=== PATIENT | female | born 1985 | race Two or more races ===

== ENCOUNTER 2020-05-01 20:01 | Inpatient (IN) | payer MEDICAID ==
[~2020-05-01] VITALS: Ht 167.6 cm; Wt 85.9 kg
[2020-05-01 22:04] LABS: Basophils # (auto) 0.1 10 ^3/uL (0-0.2); Basophils % (auto) 0.5 % (0.0-2.0); Eosinophils # (auto) 0.2 10 ^3/uL (0-0.8); Eosinophils % (auto) 1.2 % (0.0-7.0); Hematocrit 44.6 % (36.0-46.0); Hemoglobin 14.7 g/dL (12.2-16.2); Lymphocytes # (auto) 1.5 10 ^3/uL (0.4-5.4); Lymphocytes % (auto) 9.2 % (10.0-50.0); Mean Corpuscular Hemoglobin 27.5 pg (28.0-32.0); Mean Corpuscular Volume 83.3 fL (80.0-100.0); Monocytes % (auto) 6.2 % (0.0-12.0); Neutrophils # (auto) 13.1 10 ^3/uL (1.6-8.6); Neutrophils % (auto) 82.9 % (37.0-80.0); Nucleated Red Blood Cells % 0.1 %; Platelet Count (auto) 349 10^3/uL (140-450); Red Blood Cells 5.35 10^6/uL (4.0-5.20); Red Cell Distribution Width 15.2 % (11.8-14.3); White Blood Cell 15.8 10^3/uL (4.4-10.8)
[2020-05-01 22:25] LABS: Albumin 3.8 g/dL (3.4-5.0); Calcium 8.7 mg/dL (8.5-10.1)
[2020-05-01 22:32] LABS: BUN/Creatinine Ratio 15.1; Bilirubin, Total 0.3 mg/dL (0.2-1.0); Total Protein 7.7 g/dL (6.4-8.2)
[2020-05-01 23:11] LABS: Urine Bacteria FEW /hpf (None Seen); Urine Blood 1+ /uL (Negative); Urine Mucus FEW (None Seen); Urine Specific Gravity 1.016 (1.001-1.035); Urine WBC 2 /hpf (0 - 5)
[2020-05-01] MEDS ORDERED: LORazepam 2MG/ML-1ML VIAL IV ONE (23:15)
[2020-05-02] MEDS ORDERED: ONDANSETRON HCL 4 MG/2 ML VIAL IV ONE
[2020-05-02] MEDS ORDERED: CLOPIDOGREL BISULFATE 75 MG TAB PO ONE (02:00)
[2020-05-02] MEDS ORDERED: ENOXAPARIN SOD 100 MG/1 ML SYRINGE SC ONE (02:30)
[2020-05-02] MEDS ORDERED: SODIUM CHLORIDE 0.9% 1,000 ML IV SCH (02:30)
[2020-05-02] MEDS ORDERED: MORPHINE SULF INJ 2 MG/ML SYRINGE 1ML IV PRN (02:30)
[2020-05-02] MEDS ORDERED: ONDANSETRON HCL 4 MG/2 ML VIAL IV PRN (02:30)
[2020-05-02] MEDS ORDERED: NITROGLYCERIN 0.4 MG SL TAB SL PRN (02:30)
[2020-05-02 03:05] LABS: INR 2.24 (0.9-1.15); Partial Thromboplastin Time 38.1 sec (23.0-31.2)
--- NOTE | 2020-05-02 04:34 | NUR ---
Telemetry admit from ER SHIRAZFRANCHESCA admitted to Telemetry unit after NO SBAR received. Patient oriented to MEGHNA MORRISSEY, RN primary RN, unit, room, bed, and unit policies regarding patient care and visiting hours. Patient now on continuous telemetry monitoring, tele box # 48 and telemetry reading on arrival to unit is sinus rhythm at 86. Patient weighed by bed scale and encouraged to call if they need something. All questions and concerns addressed, patient verbalized understanding. Note: Personal medications removed from patient's possession and logged to be stored in pharmacy until discharge.
[2020-05-02 05:10] VITALS: BP 97/77
[2020-05-02] MEDS ORDERED: POTA10TA51 PO (06:05)
[2020-05-02] MEDS ORDERED: WARF2.5T39 PO (06:05)
[2020-05-02] MEDS ORDERED: FURO1TAB33 PO (06:05)
[2020-05-02] MEDS ORDERED: ESCI10TA53 PO (06:05)
[2020-05-02] MEDS ORDERED: LISI2.5T47 PO (06:05)
[2020-05-02] MEDS ORDERED: DIGO0.25 PO (06:05)
[2020-05-02 08:00] VITALS: BP 111/64
--- NOTE | 2020-05-02 08:00 | NUR ---
Critical Trop Informed Dr Brown of patients troponin of 2.620. No orders at this time
[2020-05-02 08:35] VITALS: BP 111/64
--- NOTE | 2020-05-02 08:35 | NUR ---
Pharmacy Coumadin Confirmed patients home dose of Coumadin of 7.5 mg Daily, last taken 10-6. Provided info to Pharmacist
[2020-05-02] MEDS ORDERED: OPTISON 3ml Vial for INJ IV ONE (10:32)
[2020-05-02] MEDS: ASPirin 81 mg TAB PO SCH (10:58)
[2020-05-02] MEDS: DIGOXIN 0.125 MG TAB PO SCH (10:59)
[2020-05-02] MEDS: FUROSEMIDE 20 MG TAB PO SCH (11:02)
[2020-05-02] MEDS: CARVEDILOL 3.125 MG TAB PO SCH ×2 (11:02→22:37)
--- NOTE | 2020-05-02 11:20 | NUR ---
Nutrition Consult Will monitor pt tolerance of diet and signs of GI issues when diet is advanced Est energy needs 4303-1815 kcal (18-20kcal/kg BW 85.9kg) Est protein needs 59-77g (1-1.3g/kg IBW 59kg) Will reassess prn. Addendum: 05/02/20 at [address] Amended: Links added.
--- NOTE | 2020-05-02 11:30 | NUR ---
Dr Brown on unit.
--- NOTE | 2020-05-02 11:35 | NUR ---
Orders received from Dr Ma and carried out
--- NOTE | 2020-05-02 12:20 | NUR ---
Per Dr Brown, I confirmed with Dr Alma Rosa Patel that Kevin is to continue patient care. Orders received from Dr Brown and carried out.
--- NOTE | 2020-05-02 12:30 | NUR ---
AICD Interrogation Dr Brown requested to have patient AICD interrogated
[2020-05-02 12:44] VITALS: BP 116/71
[2020-05-02] MEDS: HYDROcodone-ACET 5/325MG TAB PO PRN ×3 (13:40→22:36)
--- NOTE | 2020-05-02 13:40 | NUR ---
[employer] rep bedside with patient interrogating AICD
[2020-05-02 14:13] LABS: Amphetamine Screen, Urine NEGATIVE (NEGATIVE); Benzodiazephine Screen, Urine NEGATIVE (NEGATIVE); Cannabinoid Screen, Urine POSITIVE (NEGATIVE); Cocaine Screen, Urine NEGATIVE (NEGATIVE); Phencyclidine Screen, Urine NEGATIVE (NEGATIVE)
[2020-05-02 14:21] LABS: Barbiturate Scree,Urine NEGATIVE (NEGATIVE); Opiate Scree,Urine NEGATIVE (NEGATIVE)
[2020-05-02 14:49] LABS: Albumin 3.6 g/dL (3.4-5.0); BUN/Creatinine Ratio 14.4; Calcium 8.6 mg/dL (8.5-10.1); Magnesium 2.1 mg/dL (1.6-2.6); Potassium 4.1 mmol/L (3.5-5.1)
[2020-05-02 14:52] LABS: Bilirubin, Total 0.7 mg/dL (0.2-1.0); Total Protein 7.5 g/dL (6.4-8.2)
[2020-05-02 16:55] VITALS: BP 97/68
[2020-05-02] MEDS ORDERED: WARFARIN SODIUM 2.5 MG TAB PO ONE (17:00)
--- NOTE | 2020-05-02 19:30 | NUR ---
Opening Shift Note Assumed care of patient, awake and alert. No S/S of distress/SOB or pain. Instructed on POC and to call for assist PRN, will continue to monitor for changes Q1hr and PRN.
[2020-05-02 22:00] VITALS: BP 107/66
[2020-05-02] MEDS ORDERED: ATORVASTATIN 20 MG TAB PO SCH (22:00)
--- NOTE | 2020-05-02 23:50 | NUR ---
spoke with the hospitalist regarding pt's latest Trop. no new order received
[2020-05-03 05:00] VITALS: BP 105/75
[2020-05-03 05:53] LABS: Basophils # (auto) 0.1 10 ^3/uL (0-0.2); Basophils % (auto) 0.6 % (0.0-2.0); Eosinophils # (auto) 0.3 10 ^3/uL (0-0.8); Eosinophils % (auto) 2.9 % (0.0-7.0); Hematocrit 41.6 % (36.0-46.0); Hemoglobin 13.9 g/dL (12.2-16.2); Lymphocytes # (auto) 2.9 10 ^3/uL (0.4-5.4); Mean Corpuscular Hemoglobin 27.8 pg (28.0-32.0); Mean Corpuscular Hgb Conc. 33.4 g/dL (32.0-36.0); Mean Corpuscular Volume 83.3 fL (80.0-100.0); Monocytes # (auto) 0.9 10 ^3/uL (0-1.3); Monocytes % (auto) 8.9 % (0.0-12.0); Neutrophils # (auto) 6.2 10 ^3/uL (1.6-8.6); Neutrophils % (auto) 59.6 % (37.0-80.0); Nucleated Red Blood Cells % 0.1 %; Platelet Count (auto) 308 10^3/uL (140-450); Red Blood Cells 4.99 10^6/uL (4.0-5.20); White Blood Cell 10.3 10^3/uL (4.4-10.8)
[2020-05-03 06:08] LABS: INR 1.68 (0.9-1.15)
[2020-05-03 06:10] LABS: Potassium 3.8 mmol/L (3.5-5.1)
[2020-05-03 06:19] LABS: Albumin 3.7 g/dL (3.4-5.0); BUN/Creatinine Ratio 18.1; Bilirubin, Total 0.6 mg/dL (0.2-1.0); Calcium 8.7 mg/dL (8.5-10.1); Total Protein 7.4 g/dL (6.4-8.2)
--- NOTE | 2020-05-03 07:17 | NUR ---
closing notes endorsed care to day RN, no sign of distress/pain at this time
[2020-05-03 09:00] VITALS: BP 128/74
[2020-05-03] MEDS: FUROSEMIDE 20 MG TAB PO SCH (09:35)
[2020-05-03] MEDS: DIGOXIN 0.125 MG TAB PO SCH (09:35)
[2020-05-03] MEDS: CARVEDILOL 3.125 MG TAB PO SCH (09:36)
[2020-05-03] MEDS: ASPirin 81 mg TAB PO SCH (09:36)
[2020-05-03] MEDS ORDERED: CAR3125T PO (10:03)
[2020-05-03 10:26] VITALS: BP 107/70
--- NOTE | 2020-05-03 11:31 | NUR ---
Discharge instructions given as ordered. Encourage to follow up with PMD (Follow up with Dr. Alma Rosa Patel today at 1200, Follow up with PCP in 1-2 weeks) as instructed. All questions and concerns addressed. Patient verbalized understanding. Medication reconciliation form completed and copy given to patient. Home medications held in Pharmacy returned to patient. IV removed with catheter intact, pressure dressing applied. Telemetry unit returned to ICU. Patient taken to vehicle via wheelchair with all personal belongings, accompanied by staff and family member. No distress noted at time of departure.
[2020-05-03] MEDS ORDERED: WARFARIN SODIUM 2.5 MG TAB PO ONE (17:00)
== END 2020-05-03 11:30 | disposition home or self-care (01) | DRG 206 ==
LOC: EDBD 20:01 → ER 20:03 → TELE 20:04 → TELE-CENTR 05-02 04:34
PROVIDERS: ADMIT Nurse Practitioner; ATTEND Internal Medicine
PROC: 4B02XSZ Measurement of Cardiac Pacemaker, External Approach (ICD-10-PCS; principal; 2020-05-02)
DX: T82.897A Other specified complication of cardiac prosthetic devices, implants and grafts, initial encounter (principal); E66.01 Morbid (severe) obesity due to excess calories; I50.42 Chronic combined systolic (congestive) and diastolic (congestive) heart failure; Z68.30 Body mass index [BMI] 30.0-30.9, adult; Z79.01 Long term (current) use of anticoagulants; D68.32 Hemorrhagic disorder due to extrinsic circulating anticoagulants; T45.515A Adverse effect of anticoagulants, initial encounter; I42.0 Dilated cardiomyopathy; Z95.0 Presence of cardiac pacemaker; Z82.49 Family history of ischemic heart disease and other diseases of the circulatory system; Z82.0 Family history of epilepsy and other diseases of the nervous system; R77.8 Other specified abnormalities of plasma proteins
CPT/HCPCS: 36415; 71045; 80053; 80162; 80307; 81001; 83735; 84484; 85025; 85610; 85730; 93005; 93306; G0378; J2405; Q9956

== ENCOUNTER 2021-01-02 13:49 | Emergency (ER) | payer MEDICAID ==
[~2021-01-02] VITALS: Ht 167.6 cm; Wt 95.3 kg
[~2021-01-02 13:49] MED LIST: CAR3125T PO; DIGO0.25 PO; ESCI-28 PO; FURO1TAB33 PO; LISI2.5T47 PO; POTA10TA51 PO; WARF2.5T39 PO
[2021-01-02 14:35] LABS: Basophils # (auto) 0.1 10 ^3/uL (0-0.2); Basophils % (auto) 0.5 % (0.0-2.0); Eosinophils # (auto) 0.2 10 ^3/uL (0-0.8); Eosinophils % (auto) 1.2 % (0.0-7.0); Hematocrit 45.4 % (36.0-46.0); Hemoglobin 15.5 g/dL (12.2-16.2); Lymphocytes # (auto) 2.3 10 ^3/uL (0.4-5.4); Mean Corpuscular Hgb Conc. 34.1 g/dL (32.0-36.0); Mean Corpuscular Volume 82.1 fL (80.0-100.0); Monocytes # (auto) 0.7 10 ^3/uL (0-1.3); Monocytes % (auto) 5.1 % (0.0-12.0); Neutrophils % (auto) 77.2 % (37.0-80.0); Nucleated Red Blood Cells % 0.1 %; Platelet Count (auto) 441 10^3/uL (140-450); Red Blood Cells 5.53 10^6/uL (4.0-5.20); Red Cell Distribution Width 14.9 % (11.8-14.3); White Blood Cell 14.3 10^3/uL (4.4-10.8)
[2021-01-02 15:01] LABS: Alanine Aminotransferase 46 U/L (13-56); Albumin 4.1 g/dL (3.4-5.0); Anion Gap 9 (5-15); Aspartate Aminotransferase 22 U/L (15-37); BUN/Creatinine Ratio 11.1; Blood Urea Nitrogen 11 mg/dL (7-18); Calcium 9.3 mg/dL (8.5-10.1); Carbon Dioxide 24 mmol/L (21-32); Chloride 106 mmol/L (98-107); GFR African American 83 mL/min; GFR Non-African American 69 mL/min; Glucose 112 mg/dL (74-106); Magnesium 2.4 mg/dL (1.6-2.6); Potassium 3.8 mmol/L (3.5-5.1); Sodium 139 mmol/L (136-145)
[2021-01-02 15:06] LABS: Alkaline Phosphatase 125 U/L (45-117); Bilirubin, Total 0.5 mg/dL (0.2-1.0); Total Protein 8.4 g/dL (6.4-8.2)
[2021-01-02 15:58] LABS: Urine Bacteria FEW /hpf (None Seen); Urine Blood 1+ /uL (Negative); Urine Mucus FEW (None Seen); Urine Specific Gravity 1.034 (1.001-1.035); Urine WBC 4 /hpf (0 - 5)
[2021-01-02 17:10] VITALS: BP 132/45
== END 2021-01-02 17:10 | disposition home or self-care (01) ==
LOC: ER 13:49
DX: R00.2 Palpitations (principal); R06.02 Shortness of breath; D72.829 Elevated white blood cell count, unspecified; Z32.02 Encounter for pregnancy test, result negative
CPT/HCPCS: 36415; 71046; 80053; 81001; 81025; 83735; 83880; 84484; 85025; 93005

== ENCOUNTER 2021-08-26 15:33 | Emergency (ER) | payer MEDICAID ==
[~2021-08-26] VITALS: Ht 167.6 cm; Wt 90.7 kg
[2021-08-26 17:01] VITALS: BP 115/77
[2021-08-26 17:10] LABS: Basophils # (auto) 0.1 10 ^3/uL (0-0.2); Basophils % (auto) 0.8 % (0.0-2.0); Eosinophils # (auto) 0.3 10 ^3/uL (0-0.8); Eosinophils % (auto) 2.6 % (0.0-7.0); Hematocrit 41.8 % (36.0-46.0); Lymphocytes # (auto) 1.5 10 ^3/uL (0.4-5.4); Lymphocytes % (auto) 12.6 % (10.0-50.0); Mean Corpuscular Hemoglobin 27.6 pg (28.0-32.0); Mean Corpuscular Hgb Conc. 33.4 g/dL (32.0-36.0); Mean Corpuscular Volume 82.6 fL (80.0-100.0); Monocytes # (auto) 0.8 10 ^3/uL (0-1.3); Monocytes % (auto) 6.6 % (0.0-12.0); Neutrophils % (auto) 77.4 % (37.0-80.0); Red Blood Cells 5.06 10^6/uL (4.0-5.20); Red Cell Distribution Width 14.7 % (11.8-14.3); White Blood Cell 11.6 10^3/uL (4.4-10.8)
[2021-08-26 17:28] LABS: Albumin 3.5 g/dL (3.4-5.0); Calcium 9.1 mg/dL (8.5-10.1); Magnesium 3.3 mg/dL (1.6-2.6); Potassium 3.7 mmol/L (3.5-5.1)
[2021-08-26 17:34] LABS: BUN/Creatinine Ratio 15.4; Bilirubin, Total 0.3 mg/dL (0.2-1.0)
== END 2021-08-26 20:39 | disposition home or self-care (01) ==
LOC: ER 15:33
DX: R25.1 Tremor, unspecified (principal); R00.2 Palpitations; I11.0 Hypertensive heart disease with heart failure; I50.9 Heart failure, unspecified; Z86.73 Personal history of transient ischemic attack (TIA), and cerebral infarction without residual deficits; Z95.0 Presence of cardiac pacemaker; Z79.01 Long term (current) use of anticoagulants; Z79.899 Other long term (current) drug therapy
CPT/HCPCS: 36415; 70450; 71045; 80053; 81025; 83735; 84484; 85025; 85379; 93005

== ENCOUNTER 2022-01-01 14:09 | Inpatient (IN) | payer MEDICAID ==
[~2022-01-01] VITALS: Ht 167.6 cm; Wt 95.8 kg
[2022-01-01] MEDS ORDERED: ASPirin 81 mg TAB PO ONE (14:45)
[2022-01-01 15:39] LABS: Basophils # (auto) 0 10 ^3/uL (0-0.2); Basophils % (auto) 0.7 % (0.0-2.0); Eosinophils # (auto) 0.1 10 ^3/uL (0-0.8); Eosinophils % (auto) 1.4 % (0.0-7.0); Hematocrit 43.5 % (36.0-46.0); Hemoglobin 14.7 g/dL (12.2-16.2); Lymphocytes % (auto) 27.4 % (10.0-50.0); Mean Corpuscular Hemoglobin 27.9 pg (28.0-32.0); Mean Corpuscular Hgb Conc. 33.9 g/dL (32.0-36.0); Mean Corpuscular Volume 82.2 fL (80.0-100.0); Monocytes # (auto) 0.5 10 ^3/uL (0-1.3); Monocytes % (auto) 7.2 % (0.0-12.0); Neutrophils # (auto) 4.6 10 ^3/uL (1.6-8.6); Neutrophils % (auto) 63.3 % (37.0-80.0); Nucleated Red Blood Cells % 0.2 %; Red Blood Cells 5.29 10^6/uL (4.0-5.20); Red Cell Distribution Width 15.1 % (11.8-14.3); White Blood Cell 7.3 10^3/uL (4.4-10.8)
[2022-01-01 15:59] LABS: Potassium 3.7 mmol/L (3.5-5.1)
[2022-01-01 16:04] LABS: Albumin 3.8 g/dL (3.4-5.0); BUN/Creatinine Ratio 11.5; Bilirubin, Total 0.4 mg/dL (0.2-1.0); Calcium 8.9 mg/dL (8.5-10.1); Total Protein 7.9 g/dL (6.4-8.2)
[2022-01-01] MEDS ORDERED: ONDANSETRON HCL 4 MG/2 ML VIAL IV PRN (21:30)
[2022-01-01] MEDS ORDERED: DOCUSATE SOD 100 MG CAP PO PRN (21:30)
[2022-01-01] MEDS ORDERED: ACETAMINOPHEN 325 MG TAB PO PRN (21:30)
[2022-01-01] MEDS ORDERED: NITROGLYCERIN 0.4 MG SL TAB SL PRN (23:45)
[2022-01-01] MEDS ORDERED: MORPHINE SULFATE INJ 2 MG/ml SYRG IV PRN (23:45)
[2022-01-02] VITALS (7 sets, daily range): BP systolic 104–115; BP diastolic 70–81
[2022-01-02] MEDS: HYDROcodone-ACET 5/325MG TAB PO PRN ×3 (02:32→20:12)
[2022-01-02 04:48] LABS: Urine Bacteria NONE SEEN /hpf (None Seen); Urine Blood TRACE /uL (Negative); Urine Mucus FEW (None Seen); Urine Specific Gravity 1.034 (1.001-1.035); Urine WBC 1 /hpf (0 - 5)
[2022-01-02 06:27] LABS: Basophils # (auto) 0 10 ^3/uL (0-0.2); Basophils % (auto) 0.6 % (0.0-2.0); Eosinophils # (auto) 0.2 10 ^3/uL (0-0.8); Eosinophils % (auto) 2.9 % (0.0-7.0); Hematocrit 37.6 % (36.0-46.0); Hemoglobin 12.8 g/dL (12.2-16.2); Lymphocytes # (auto) 2.6 10 ^3/uL (0.4-5.4); Lymphocytes % (auto) 34.5 % (10.0-50.0); Mean Corpuscular Hemoglobin 28.2 pg (28.0-32.0); Mean Corpuscular Hgb Conc. 34.1 g/dL (32.0-36.0); Mean Corpuscular Volume 82.7 fL (80.0-100.0); Monocytes # (auto) 0.7 10 ^3/uL (0-1.3); Monocytes % (auto) 9.1 % (0.0-12.0); Neutrophils # (auto) 4.1 10 ^3/uL (1.6-8.6); Neutrophils % (auto) 52.9 % (37.0-80.0); Nucleated Red Blood Cells % 0.1 %; Red Blood Cells 4.55 10^6/uL (4.0-5.20); Red Cell Distribution Width 15.1 % (11.8-14.3); White Blood Cell 7.7 10^3/uL (4.4-10.8)
[2022-01-02 06:42] LABS: Albumin 3.3 g/dL (3.4-5.0); BUN/Creatinine Ratio 17.5; Calcium 8.4 mg/dL (8.5-10.1); Potassium 3.4 mmol/L (3.5-5.1)
[2022-01-02 06:45] LABS: Bilirubin, Total 0.2 mg/dL (0.2-1.0); Total Protein 6.7 g/dL (6.4-8.2)
[2022-01-02] MEDS: ENOXAPARIN SOD 40 MG/0.4 ML SYRINGE SC SCH (10:00)
[2022-01-02] MEDS: FAMOTIDINE (10MG/ML) 2ML VL IV SCH (10:00)
[2022-01-02] MEDS: ASPirin 81 mg TAB PO SCH (10:20)
[2022-01-02] MEDS ORDERED: POTASSIUM CHL 20 Meq TABLET PO ONE (12:00)
[2022-01-02] MEDS ORDERED: LISINOPRIL 5 MG TAB PO SCH (13:15)
[2022-01-02 14:06] LABS: INR 2.02 (0.9-1.15); Partial Thromboplastin Time 34.1 sec (23.6-33.0)
[2022-01-02] MEDS ORDERED: WARFARIN SODIUM 2.5 MG TAB PO ONE (17:00)
[2022-01-02] MEDS: CARVEDILOL 3.125 MG TAB PO SCH (21:16)
[2022-01-03 05:19] VITALS: BP 121/85
[2022-01-03 08:36] LABS: INR 2.03 (0.9-1.15); Partial Thromboplastin Time 35.7 sec (23.6-33.0)
[2022-01-03 08:59] VITALS: BP 119/79
[2022-01-03] MEDS: ENOXAPARIN SOD 40 MG/0.4 ML SYRINGE SC SCH (09:19)
[2022-01-03] MEDS: ASPirin 81 mg TAB PO SCH (09:26)
[2022-01-03] MEDS: CARVEDILOL 3.125 MG TAB PO SCH ×2 (09:27→22:21)
[2022-01-03] MEDS: FUROSEMIDE 20 MG TAB PO SCH (09:27)
[2022-01-03] MEDS: DIGOXIN 0.25 MG TAB PO SCH (09:28)
[2022-01-03] MEDS ORDERED: WARFARIN SODIUM 2.5 MG TAB PO SCH ×2 (10:00)
[2022-01-03] MEDS: FAMOTIDINE (10MG/ML) 2ML VL IV SCH (10:00)
[2022-01-03] MEDS: Escitalopram Oxalate 5 MG PO SCH (10:00)
[2022-01-03] MEDS: HYDROcodone-ACET 5/325MG TAB PO PRN ×3 (10:56→22:53)
[2022-01-03] MEDS ORDERED: LORazepam 0.5 MG TAB PO ONE (11:00)
[2022-01-03 12:00] VITALS: BP 119/71
[2022-01-03] MEDS ORDERED: WARFARIN SODIUM 2.5 MG TAB PO ONE ×2 (17:00)
[2022-01-03 17:06] VITALS: BP 113/80
[2022-01-03 22:00] VITALS: BP 109/65
[2022-01-04 05:00] VITALS: BP 119/83
[2022-01-04 07:43] LABS: Basophils # (auto) 0 10 ^3/uL (0-0.2); Basophils % (auto) 0.5 % (0.0-2.0); Eosinophils # (auto) 0.2 10 ^3/uL (0-0.8); Eosinophils % (auto) 2.5 % (0.0-7.0); Hematocrit 37.8 % (36.0-46.0); Hemoglobin 12.9 g/dL (12.2-16.2); Lymphocytes # (auto) 2.3 10 ^3/uL (0.4-5.4); Lymphocytes % (auto) 24.8 % (10.0-50.0); Mean Corpuscular Hgb Conc. 34.2 g/dL (32.0-36.0); Mean Corpuscular Volume 82.1 fL (80.0-100.0); Monocytes # (auto) 0.6 10 ^3/uL (0-1.3); Monocytes % (auto) 6.5 % (0.0-12.0); Neutrophils # (auto) 6.1 10 ^3/uL (1.6-8.6); Neutrophils % (auto) 65.7 % (37.0-80.0); Red Cell Distribution Width 14.7 % (11.8-14.3); White Blood Cell 9.2 10^3/uL (4.4-10.8)
[2022-01-04 08:00] LABS: INR 2.39 (0.9-1.15); Partial Thromboplastin Time 35.9 sec (23.6-33.0)
[2022-01-04 08:01] LABS: BUN/Creatinine Ratio 14.8; Calcium 8.3 mg/dL (8.5-10.1); Potassium 3.9 mmol/L (3.5-5.1)
[2022-01-04 09:00] VITALS: BP 116/80
[2022-01-04] MEDS: HYDROcodone-ACET 5/325MG TAB PO PRN ×3 (09:08→18:31)
[2022-01-04] MEDS: ASPirin 81 mg TAB PO SCH (09:09)
[2022-01-04] MEDS: FAMOTIDINE (10MG/ML) 2ML VL IV SCH (09:09)
[2022-01-04] MEDS: CARVEDILOL 3.125 MG TAB PO SCH (09:10)
[2022-01-04] MEDS: DIGOXIN 0.25 MG TAB PO SCH (09:10)
[2022-01-04] MEDS: FUROSEMIDE 20 MG TAB PO SCH (09:11)
[2022-01-04] MEDS: ENOXAPARIN SOD 40 MG/0.4 ML SYRINGE SC SCH (09:11)
[2022-01-04] MEDS: Escitalopram Oxalate 5 MG PO SCH (10:00)
[2022-01-04] MEDS ORDERED: SACUBITRIL-VALSARTAN 24mg/26mg TAB PO SCH (12:35)
[2022-01-04 13:00] VITALS: BP 115/71
[2022-01-04] MEDS ORDERED: WARFARIN SODIUM 5 MG TAB PO ONE (17:00)
[2022-01-04 17:11] VITALS: BP 105/79
== END 2022-01-04 18:40 | disposition home or self-care (01) | DRG 194 ==
LOC: ER 14:09 → TELE 23:34 → CENTRAL 23:55 → TELE-CENTR 01-02 19:38
PROVIDERS: ADMIT Nurse Practitioner Family; ATTEND Internal Medicine Pulmonary Disease
DX: I11.0 Hypertensive heart disease with heart failure (principal); I24.9 Acute ischemic heart disease, unspecified; I42.0 Dilated cardiomyopathy; I50.23 Acute on chronic systolic (congestive) heart failure; Z20.822 Contact with and (suspected) exposure to COVID-19; Z82.49 Family history of ischemic heart disease and other diseases of the circulatory system; Z86.73 Personal history of transient ischemic attack (TIA), and cerebral infarction without residual deficits; Z95.810 Presence of automatic (implantable) cardiac defibrillator
CPT/HCPCS: 36415; 71045; 80048; 80053; 80162; 81001; 83880; 84484; 84702; 85025; 85610; 85730; 93005; 93306; 99291; G0378